=== PATIENT | female | born 1985 | race Caucasian/White ===

== ENCOUNTER 2017-04-03 16:24 | Emergency (ER) | payer MEDICAID ==
[2017-04-03] MEDS ORDERED: NS 0.9% 1000 ML* 1,000 ML IV ONE (17:13)
[2017-04-03 17:56] LABS: Hematocrit 38 % (35-47); Hemoglobin 12.4 g/dl (12.0-16.0); Mean Corpuscular HGB Conc 33 g/dl (31-36); Mean Corpuscular Hemoglobin 31 pg (27-31); Mean Corpuscular Volume 92 fL (80-97); Mean Platelet Volume 8 um3 (7.4-10.4); Red Blood Count 4.07 10^6/ul (4.0-5.4); Red Cell Distribution Width 13 % (10.5-15)
[2017-04-03 17:58] LABS: Urine Bilirubin Negative (Negative); Urine Glucose Negative (Negative); Urine Nitrite Negative (Negative)
[2017-04-03 18:13] LABS: ALT 7 U/L (7-52); AST 15 U/L (13-39); Albumin 3.8 g/dL (3.2-5.2); Alkaline Phosphatase 41 U/L (34-104); Anion Gap 5 mmol/L (2-11); BUN/Creatinine Ratio 24.7 (8-20); Blood Urea Nitrogen 19 mg/dL (6-24); CO2 Carbon Dioxide 25 mmol/L (22-32); Calcium 8.7 mg/dL (8.6-10.3); Chloride 107 mmol/L (101-111); EGFR African American 113.2 (>60); Globulin 2.6 g/dL (2-4); Glucose 108 mg/dL (70-100); Potassium 3.3 mmol/L (3.5-5.0); Sodium 137 mmol/L (133-145); Total Protein 6.4 g/dL (6.4-8.9)
[2017-04-03] MEDS ORDERED: Iodixanol* (CONTRAST) 320 MG/ML 100 ML SDV IV ONE (18:31)
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
[2017-04-03] MEDS ORDERED: Morphine INJ* 4 MG/ML 1 ML CARPUJECT IV ONE (19:17)
[2017-04-03] MEDS ORDERED: Morphine INJ* 4 MG/ML 1 ML CARPUJECT ONE (19:18)
[2017-04-03] MEDS ORDERED: Ibuprofen TAB* 600 MG PO ONE (20:55)
[2017-04-03] MEDS ORDERED: HYDROcodone/ACETAMIN 5-325 MG* 1 TAB PO ONE ×2 (20:55→20:56)
[2017-04-03 21:28] VITALS: BP 115/66
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
== END 2017-04-03 21:52 | disposition home or self-care (01) ==
LOC: ED 16:24
DX: S00.93XA Contusion of unspecified part of head, initial encounter (principal); R21 Rash and other nonspecific skin eruption; R51 Headache; R07.9 Chest pain, unspecified; R10.9 Unspecified abdominal pain; R11.2 Nausea with vomiting, unspecified; V09.9XXA Pedestrian injured in unspecified transport accident, initial encounter; Y93.9 Activity, unspecified; Y92.9 Unspecified place or not applicable
CPT/HCPCS: 36415; 70450; 71260; 72125; 74177; 80053; 81003; 83605; 84702; 85025; 85610; 86850; 86900; 86901; 96374; 96376; 99285; A9270-GY; J2270; Q9967